=== PATIENT | female | born 1965 | race Caucasian/White ===

== ENCOUNTER 2020-09-11 23:53 | Emergency (ER) | payer BC | END 2020-09-12 02:09 | disposition left against medical advice (07) | LOC: ER1 23:53 | DX: Z53.21 Procedure and treatment not carried out due to patient leaving prior to being seen by health care provider (principal) | CPT/HCPCS: 93005 ==

== ENCOUNTER → 2021-08-07 | Outpatient (CLI) | payer OTHER | LOC: KOH-I 08:57 | DX: M79.672 Pain in left foot (principal); M79.671 Pain in right foot; S92.331A Displaced fracture of third metatarsal bone, right foot, initial encounter for closed fracture; S92.322A Displaced fracture of second metatarsal bone, left foot, initial encounter for closed fracture; S92.332A Displaced fracture of third metatarsal bone, left foot, initial encounter for closed fracture; S92.342A Displaced fracture of fourth metatarsal bone, left foot, initial encounter for closed fracture | CPT/HCPCS: 73630 ==